=== PATIENT | female | born 1980 | race Caucasian/White ===

== ENCOUNTER 2017-11-24 06:02 | Inpatient (IN) | payer OTHER ==
[2017-11-22 16:19] LABS: BASOPHILS ABSOLUTE AUTO 0.01 K/mm3 (0.00-0.23); BASOPHILS PERCENT AUTO 0 % (0-2); EOSINOPHILS ABSOLUTE AUTO 0.06 K/mm3 (0.00-0.68); EOSINOPHILS PERCENT AUTO 1 % (0-6); Hematocrit 30.2 % (33.0-51.0); IMMATURE GRAN ABSOLUTE AUTO 0.01 K/mm3 (0.00-0.10); IMMATURE GRAN PERCENT AUTO 0 % (0-1); LYMPHOCYTES ABSOLUTE AUTO 2.09 K/mm3 (0.84-5.20); LYMPHOCYTES PERCENT AUTO 28 % (21-46); MONOCYTES PERCENT AUTO 5 % (4-13); Mean Corpuscular HGB 27.5 pg (26.0-34.0); Mean Corpuscular HGB Conc 33.1 g/dL (31.5-36.5); Mean Corpuscular Volume 83 fL (80-100); Mean Platelet Volume 12.6 fL (9.1-12.4); NEUTROPHILS ABSOLUTE AUTO 4.86 K/mm3 (1.96-9.15); NEUTROPHILS PERCENT AUTO 66 % (41-73); Platelet Count 270 K/mm3 (150-400); Red Blood Cell Count 3.63 M/mm3 (3.80-5.20); White Blood Cell Count 7.43 K/mm3 (4.00-11.30)
[~2017-11-24] VITALS: Ht 170.2 cm; Wt 108.0 kg
[~2017-11-24 06:02] MED LIST: AZIT250 PO; BUSP10 PO; GUAI600T33 PO; HUMULIN N100 UNIT/1 SC; HYDACE5 PO; LORA10ER PO; METF500 PO; METF500C PO; NITR100CA PO; NORT10 PO; ONDA4 PO; PROM25 PO; PSEU120ER PO; Prilosec20 MG PO; RANI150 PO; Verotin-Gr Cap1 EACH PO; Zofran Odt8 MG SL
[2017-11-24 08:13] LABS: Alanine Aminotransfer (ALT/SGP 126 U/L (12-78); Albumin, Blood 2.3 g/dL (3.4-5.0); Albumin/Globulin Ratio 0.5 (0.8-1.8); Alk Phos 148 U/L (50-136); Anion Gap 9 mmol/L (6-16); Aspartate Aminotrans (AST/SGOT 80 U/L (12-37); Bilirubin, Total 0.2 mg/dL (0.1-1.0); Blood Urea Nitrogen 13 mg/dL (8-24); Bun/Creatinine Ratio 22.6 (12.0-20.0); CO2, Blood 23 mmol/L (21-32); Calcium, Blood 9.2 mg/dL (8.5-10.1); Chloride, Blood 105 mmol/L (98-108); Creatinine, Blood 0.58 mg/dL (0.40-1.00); Globulin, Blood 4.4 g/dL (2.2-4.0); Glomerular Filtration Rate >60 (60-); Glucose, Blood 102 mg/dL (70-99); Potassium, Blood 3.9 mmol/L (3.5-5.5); Sodium, Blood 137 mmol/L (136-145); Total Protein, Blood 6.7 g/dL (6.4-8.2)
[2017-11-25 06:10] LABS: Hematocrit 30.3 % (33.0-51.0); Mean Corpuscular HGB 27.3 pg (26.0-34.0); Mean Corpuscular Volume 83 fL (80-100); Mean Platelet Volume 12.6 fL (9.1-12.4); Platelet Count 294 K/mm3 (150-400); RDW Coefficient Variation 14.2 % (11.7-14.2); RDW Standard Deviation 42.4 fL (35.1-46.3); Red Blood Cell Count 3.66 M/mm3 (3.80-5.20); White Blood Cell Count 12.95 K/mm3 (4.00-11.30)
[2017-11-25] MEDS ORDERED: Percocet 5-3251 EACH PO (15:04)
[2017-11-25] MEDS ORDERED: IBUP800 PO (15:04)
== END 2017-11-26 13:00 | disposition home or self-care (01) | DRG 765 ==
LOC: BC 06:02
PROVIDERS: Obstetrics & Gynecology
PROC: 10D00Z1 Extraction of Products of Conception, Low, Open Approach (ICD-10-PCS; principal; 2017-11-24 07:30)
DX: O26.62 Liver and biliary tract disorders in childbirth (principal); O24.12 Pre-existing type 2 diabetes mellitus, in childbirth; K83.1 Obstruction of bile duct; O99.354 Diseases of the nervous system complicating childbirth; O34.211 Maternal care for low transverse scar from previous cesarean delivery; M41.9 Scoliosis, unspecified; F32.9 Major depressive disorder, single episode, unspecified; O99.344 Other mental disorders complicating childbirth; E11.9 Type 2 diabetes mellitus without complications; Z3A.37 37 weeks gestation of pregnancy; Z37.0 Single live birth; Z88.1 Allergy status to other antibiotic agents; Z88.0 Allergy status to penicillin; Z79.4 Long term (current) use of insulin; Z79.84 Long term (current) use of oral hypoglycemic drugs; Z79.899 Other long term (current) drug therapy
CPT/HCPCS: 36415; 80053; 82947; 85025; 85027; 86850; 86900; 86901; J0690; J0694; J1885; J2590; J2765; J3010; J3430; J7120

== ENCOUNTER 2017-12-11 15:26 | Emergency (ER) | payer OTHER ==
[~2017-12-11] VITALS: Ht 170.2 cm; Wt 98.0 kg
[~2017-12-11 15:26] MED LIST changes: +IBUP800 PO; +Percocet 5-3251 EACH PO
[2017-12-11] MEDS ORDERED: FLUO10 PO (15:35)
[2017-12-11] MEDS ORDERED: HINGED KNEE SUPPORT TOP (16:14)
== END 2017-12-11 16:20 | disposition home or self-care (01) ==
LOC: ER 15:26
DX: O99.89 Other specified diseases and conditions complicating pregnancy, childbirth and the puerperium (principal); M25.561 Pain in right knee; Z88.0 Allergy status to penicillin; Z88.6 Allergy status to analgesic agent; Z79.891 Long term (current) use of opiate analgesic; Z79.899 Other long term (current) drug therapy
CPT/HCPCS: 73562-RT; 99283

== ENCOUNTER → 2018-07-11 | Outpatient (CLI) | payer OTHER ==
[~2018-07-11] MED LIST changes: +FLUO10 PO; +HINGED KNEE SUPPORT TOP
[2018-07-13 14:11] LABS: HPV 16 Negative (Negative); HPV OTHER HR TYPES Negative (Negative)
[2018-08-02 20:13] LABS: HPV 18 Negative (Negative)
[2018-08-03 10:55] LABS: CHLAMYDIA TRACHOMATIS, NAA Negative (Negative); NEISSERIA GONORRHOEAE, NAA Negative (Negative)
[2018-08-03 10:58] LABS: TRICH VAG BY NAA Negative (Negative)
== END | disposition home or self-care (01) ==
LOC: LAB 12:00 → LAB SHORT 12:00
PROVIDERS: Obstetrics & Gynecology
DX: Z01.419 Encounter for gynecological examination (general) (routine) without abnormal findings (principal); Z11.3 Encounter for screening for infections with a predominantly sexual mode of transmission
CPT/HCPCS: 87491; 87591; 87624; 87661; G0123

== ENCOUNTER → 2018-12-05 | Outpatient (CLI) | payer OTHER ==
[~2018-12-05] MED LIST changes: +CEFP200 PO; +Glucophage1000 MG PO; +MELO7.5 PO; +MONT10T PO; +VITAMIN D50000 UNIT PO
[2018-12-05 14:15] LABS: Candida species (DNA Probe) Negative (NEGATIVE); G. vaginalis (DNA Probe) Negative (NEGATIVE); T. vaginalis (DNA Probe) Positive (NEGATIVE)
[2018-12-07 03:11] LABS: CHLAMYDIA TRACHOMATIS, NAA Negative (Negative); NEISSERIA GONORRHOEAE, NAA Negative (Negative)
== END ==
LOC: LAB 10:26 → LAB SHORT 10:26
PROVIDERS: Obstetrics & Gynecology
DX: N76.0 Acute vaginitis (principal); Z11.3 Encounter for screening for infections with a predominantly sexual mode of transmission
CPT/HCPCS: 87480; 87491; 87510; 87591; 87660

== ENCOUNTER 2019-01-17 00:56 | Emergency (ER) | payer OTHER ==
[~2019-01-17] VITALS: Ht 170.2 cm; Wt 113.4 kg
[~2019-01-17 00:56] MED LIST changes: -CEFP200 PO; -Glucophage1000 MG PO; -MELO7.5 PO; -MONT10T PO; -VITAMIN D50000 UNIT PO
[2019-01-17] MEDS ORDERED: PSEU120ER PO (01:52)
[2019-01-17] MEDS ORDERED: CEFP200 PO (01:52)
[2019-01-17] MEDS ORDERED: MELO7.5 PO (02:05)
[2019-01-17] MEDS ORDERED: Glucophage1000 MG PO (02:06)
[2019-01-17] MEDS ORDERED: VITAMIN D50000 UNIT PO (02:06)
[2019-01-17] MEDS ORDERED: MONT10T PO (02:06)
== END 2019-01-17 02:10 | disposition home or self-care (01) ==
LOC: ER 00:56
DX: H66.91 Otitis media, unspecified, right ear (principal); Z88.0 Allergy status to penicillin; Z88.1 Allergy status to other antibiotic agents; Z88.6 Allergy status to analgesic agent; Z79.84 Long term (current) use of oral hypoglycemic drugs; Z79.899 Other long term (current) drug therapy
CPT/HCPCS: 96372; 99282-25; J1885

== ENCOUNTER 2019-09-20 08:40 | Emergency (ER) | payer OTHER ==
[~2019-09-20] VITALS: Ht 170.2 cm; Wt 113.8 kg
[~2019-09-20 08:40] MED LIST changes: +CEFP200 PO; +CEPH500 PO; +Glucophage1000 MG PO; +MELO7.5 PO; +MONT10T PO; +VITAMIN D50000 UNIT PO
[2019-09-20] MEDS ORDERED: Humulin N100 UNIT/1 SQ (09:57)
[2019-09-20] MEDS ORDERED: FERRO-TIME325 MG PO (09:58)
[2019-09-20] MEDS ORDERED: ERGO50000 PO (09:58)
[2019-09-20] MEDS ORDERED: URSO300 PO (09:58)
[2019-09-20] MEDS ORDERED: Norco 5-325 Ta1 EACH PO ×2 (10:07→10:24)
== END 2019-09-20 10:25 | disposition home or self-care (01) ==
LOC: ER 08:40
DX: O99.89 Other specified diseases and conditions complicating pregnancy, childbirth and the puerperium (principal); M54.5 Low back pain; G89.29 Other chronic pain; O24.913 Unspecified diabetes mellitus in pregnancy, third trimester; Z88.0 Allergy status to penicillin; Z88.1 Allergy status to other antibiotic agents; Z88.8 Allergy status to other drugs, medicaments and biological substances; Z79.899 Other long term (current) drug therapy; Z79.84 Long term (current) use of oral hypoglycemic drugs; Z3A.36 36 weeks gestation of pregnancy
CPT/HCPCS: 99283; A9270-GY

== ENCOUNTER → 2019-10-01 | Outpatient (CLI) | payer OTHER ==
[~2019-10-01] MED LIST changes: +ERGO50000 PO; +FERRO-TIME325 MG PO; +Humulin N100 UNIT/1 SQ; +Norco 5-325 Ta1 EACH PO; +URSO300 PO
== END | disposition home or self-care (01) ==
LOC: LAB SHORT 14:15 → LAB 14:15
DX: Z34.03 Encounter for supervision of normal first pregnancy, third trimester (principal)
CPT/HCPCS: 87081; 87653

== ENCOUNTER 2019-10-08 23:20 | Inpatient (IN) | payer OTHER ==
[~2019-10-08] VITALS: Ht 170.2 cm; Wt 130.5 kg
[2019-10-09 00:09] LABS: Source, Urine Clean Catch
[2019-10-09 00:14] LABS: Bilirubin, Urine Neg (Neg); Blood, Urine Neg (Neg); Glucose Qualitative, Urine Neg (Neg); Ketones, Urine 1+ (Neg); Leukocyte Esterase, Urine 2+ (Neg); Nitrite, Urine Neg (Neg); Protein, Urine 1+ (Neg); Specific Gravity, Urine 1.025 (1.003-1.022); Urobilinogen, Urine 1+ (Normal)
[2019-10-09 00:27] LABS: Appearance, Urine Hazy (Clear); Color, Urine Yellow (P-Yellow)
[2019-10-09 00:28] LABS: Amorphous Light (0-Heavy); Bacteria Many /hpf; Mucus Light (0-Heavy); Red Blood Cells, Urine Not Seen /hpf (0-2); Squamous Epithelial Cells Many /hpf (Few)
[2019-10-09 01:40] LABS: BASOPHILS ABSOLUTE AUTO 0.01 K/mm3 (0.00-0.23); BASOPHILS PERCENT AUTO 0 % (0-2); EOSINOPHILS PERCENT AUTO 1 % (0-6); Hematocrit 32.6 % (33.0-51.0); Hemoglobin 10.6 g/dL (11.5-16.0); IMMATURE GRAN ABSOLUTE AUTO 0.04 K/mm3 (0.00-0.10); IMMATURE GRAN PERCENT AUTO 0 % (0-1); LYMPHOCYTES PERCENT AUTO 21 % (21-46); MONOCYTES ABSOLUTE AUTO 0.72 K/mm3 (0.16-1.47); MONOCYTES PERCENT AUTO 7 % (4-13); Mean Corpuscular HGB 27.9 pg (26.0-34.0); Mean Corpuscular HGB Conc 32.5 g/dL (31.5-36.5); Mean Corpuscular Volume 86 fL (80-100); Mean Platelet Volume 13.3 fL (9.1-12.4); NEUTROPHILS ABSOLUTE AUTO 7.82 K/mm3 (1.96-9.15); NEUTROPHILS PERCENT AUTO 71 % (41-73); Platelet Count 194 K/mm3 (150-400); RDW Coefficient Variation 15.6 % (11.7-14.2); RDW Standard Deviation 48.7 fL (35.1-46.3); White Blood Cell Count 10.99 K/mm3 (4.00-11.30)
[2019-10-09 01:51] LABS: Alanine Aminotransfer (ALT/SGP 129 U/L (12-78); Albumin, Blood 2.3 g/dL (3.4-5.0); Albumin/Globulin Ratio 0.5 (0.8-1.8); Alk Phos 117 U/L (50-136); Anion Gap 7 mmol/L (6-16); Aspartate Aminotrans (AST/SGOT 93 U/L (12-37); Bilirubin, Total 0.4 mg/dL (0.1-1.0); Blood Urea Nitrogen 12 mg/dL (8-24); Bun/Creatinine Ratio 19.4 (12.0-20.0); CO2, Blood 25 mmol/L (21-32); Calcium, Blood 9.4 mg/dL (8.5-10.1); Chloride, Blood 107 mmol/L (98-108); Creatinine, Blood 0.62 mg/dL (0.40-1.00); Globulin, Blood 4.3 g/dL (2.2-4.0); Glomerular Filtration Rate >60 (60-); Glucose, Blood 99 mg/dL (70-99); Sodium, Blood 139 mmol/L (136-145); Total Protein, Blood 6.6 g/dL (6.4-8.2)
[2019-10-09 08:41] LABS: Protein, Urine Random 29.4 mg/dL (0.0-11.9); Protein/Creat Ratio, Ur Random 0.2
--- NOTE | 2019-10-09 12:03 | NUR ---
10/09/19 1203 Taisha Llanos VIABLE MALE BORN AT 1151 WEIGHING 8-0 ([id number] GRAMS) APGARS 7/9. CORD GASES COLLECTED AND SENT WITH RT AMATO. CORD BLOOD COLLECTED.
[2019-10-09 12:09] LABS: PCO2 Cord - Arterial 69.7 mmHg (40-50); PO2 Cord - Arterial 17.5 mmHg (16-20); pH Cord - Arterial 7.24 (7.28-7.35)
[2019-10-09 12:10] LABS: PCO2 Cord - Venous 50 mmHg (40-50); pH Umbilical Cord - Venous 7.34 (7.26-7.35)
[2019-10-10 05:37] LABS: BASOPHILS ABSOLUTE AUTO 0.02 K/mm3 (0.00-0.23); BASOPHILS PERCENT AUTO 0 % (0-2); EOSINOPHILS ABSOLUTE AUTO 0.07 K/mm3 (0.00-0.68); EOSINOPHILS PERCENT AUTO 1 % (0-6); Hematocrit 31.6 % (33.0-51.0); IMMATURE GRAN ABSOLUTE AUTO 0.05 K/mm3 (0.00-0.10); IMMATURE GRAN PERCENT AUTO 0 % (0-1); LYMPHOCYTES ABSOLUTE AUTO 2.03 K/mm3 (0.84-5.20); LYMPHOCYTES PERCENT AUTO 18 % (21-46); MONOCYTES ABSOLUTE AUTO 0.64 K/mm3 (0.16-1.47); MONOCYTES PERCENT AUTO 6 % (4-13); Mean Corpuscular HGB 27.9 pg (26.0-34.0); Mean Corpuscular HGB Conc 31.6 g/dL (31.5-36.5); Mean Corpuscular Volume 88 fL (80-100); Mean Platelet Volume 12.8 fL (9.1-12.4); NEUTROPHILS ABSOLUTE AUTO 8.73 K/mm3 (1.96-9.15); NEUTROPHILS PERCENT AUTO 76 % (41-73); Platelet Count 204 K/mm3 (150-400); RDW Coefficient Variation 15.9 % (11.7-14.2); RDW Standard Deviation 50.7 fL (35.1-46.3); Red Blood Cell Count 3.59 M/mm3 (3.80-5.20); White Blood Cell Count 11.54 K/mm3 (4.00-11.30)
[2019-10-10 06:08] LABS: Alanine Aminotransfer (ALT/SGP 183 U/L (12-78); Albumin/Globulin Ratio 0.5 (0.8-1.8); Alk Phos 122 U/L (50-136); Anion Gap 7 mmol/L (6-16); Aspartate Aminotrans (AST/SGOT 132 U/L (12-37); Bilirubin, Total 0.2 mg/dL (0.1-1.0); Blood Urea Nitrogen 6 mg/dL (8-24); Bun/Creatinine Ratio 9.4 (12.0-20.0); CO2, Blood 26 mmol/L (21-32); Chloride, Blood 103 mmol/L (98-108); Creatinine, Blood 0.64 mg/dL (0.40-1.00); Globulin, Blood 3.9 g/dL (2.2-4.0); Glomerular Filtration Rate >60 (60-); Glucose, Blood 126 mg/dL (70-99); Sodium, Blood 136 mmol/L (136-145); Total Protein, Blood 5.9 g/dL (6.4-8.2)
[2019-10-10 06:14] LABS: Calcium, Blood 7.3 mg/dL (8.5-10.1)
--- NOTE | 2019-10-10 09:15 | NUR ---
MAGNESIUN SULFATE PTS INFUSING COMPLETE AND IV SL'D PT UP TO BR FOR POSS BM UNSUCCESSFUL PT SITTING AND DANGLING AT BEDSIDE PT READY FOR PAIN MEDS THEN AFTER A FEW HOURS WOULD LIKE TO SHOWER WHEN [facility] IS OUT
--- NOTE | 2019-10-10 10:51 | NUR ---
assumed care of pt, hat in toilet, pt would like poole out at 1130 and to get up and shower at that time
--- NOTE | 2019-10-10 13:00 | NUR ---
pt ambulated to [facility]
[2019-10-10] MEDS ORDERED: IBUP800 PO (15:52)
[2019-10-10] MEDS ORDERED: Percocet 5-3251 EACH PO (15:52)
--- NOTE | 2019-10-10 18:57 | NUR ---
pt has snacked all day off and on. wasnt able to do a AC lunch cbg, pt had just had cottage cheese 45 min prior. did a 1 hr postprandial of 129, (pt reports does 1 hour postprandial at home) havent done dinner cbg, pt again has snacked all evening, will call rn when done eating and will do a 1 hr postprandial to get the cbg done.
--- NOTE | 2019-10-11 01:13 | NUR ---
DTR'S 1+
--- NOTE | 2019-10-11 04:58 | NUR ---
DTR'S 1+
--- NOTE | 2019-10-11 07:12 | NUR ---
REPORT TO JEAN PIERRE BOWEN
--- NOTE | 2019-10-11 07:25 | NUR ---
pt sleeping, breakfast at bedside, obt doing AC cbg.
--- NOTE | 2019-10-11 10:20 | NUR ---
pt is ready to discharge home when her ride gets here, she is going to shower, and her mom is on her way, call discharge teaching is done, core referral is done, ppfu phone call is made, pt is aware that if baby discharges home tuesday could make a ppfu appt on tuesday if she is interested.
--- NOTE | 2019-10-11 12:22 | NUR ---
DC HOME WITH FAMILY
== END 2019-10-11 12:22 | disposition home or self-care (01) | DRG 786 ==
LOC: OBS 23:20 → BC 23:20 → OBS 10-09 02:20 → BC 10-09 02:22
PROVIDERS: Registered Nurse Community Health; ADMIT Obstetrics & Gynecology
PROC: 10D00Z1 Extraction of Products of Conception, Low, Open Approach (ICD-10-PCS; principal; 2019-10-09 11:00)
DX: O14.14 Severe pre-eclampsia complicating childbirth (principal); K83.1 Obstruction of bile duct; O24.12 Pre-existing type 2 diabetes mellitus, in childbirth; O26.62 Liver and biliary tract disorders in childbirth; E11.9 Type 2 diabetes mellitus without complications; Z3A.36 36 weeks gestation of pregnancy; Z37.0 Single live birth; Z79.4 Long term (current) use of insulin; O99.214 Obesity complicating childbirth; E66.01 Morbid (severe) obesity due to excess calories; O99.62 Diseases of the digestive system complicating childbirth; K21.9 Gastro-esophageal reflux disease without esophagitis; G47.33 Obstructive sleep apnea (adult) (pediatric)
CPT/HCPCS: 36415; 59025; 80053; 81001; 82570; 82803; 82947; 84156; 85025; 86850; 86900; 86901; 87086; 90707; 99212; C9113; J0690; J1815; J1885; J2405; J2590; J2765; J3010; J3475; J7120

== ENCOUNTER → 2020-07-25 | Outpatient (CLI) | payer OTHER | END | disposition home or self-care (01) | LOC: LAB SHORT 14:01 | DX: N72 Inflammatory disease of cervix uteri (principal) | CPT/HCPCS: 88305; 88342 ==

== ENCOUNTER → 2020-08-20 | Outpatient (CLI) | payer OTHER ==
[2020-08-21 07:47] LABS: Candida species (DNA Probe) Positive (NEGATIVE); G. vaginalis (DNA Probe) Positive (NEGATIVE); T. vaginalis (DNA Probe) Negative (NEGATIVE)
== END | disposition home or self-care (01) ==
LOC: LAB 14:30 → LAB SHORT 14:30
PROVIDERS: Obstetrics & Gynecology
DX: N76.0 Acute vaginitis (principal)
CPT/HCPCS: 87480; 87510; 87660

== ENCOUNTER → 2020-09-04 | Outpatient (CLI) | payer OTHER ==
[2020-09-05 10:25] LABS: Candida species (DNA Probe) Positive (NEGATIVE); G. vaginalis (DNA Probe) Negative (NEGATIVE); T. vaginalis (DNA Probe) Negative (NEGATIVE)
== END | disposition home or self-care (01) ==
LOC: LAB SHORT 19:54 → LAB 19:54
PROVIDERS: Obstetrics & Gynecology
DX: N76.0 Acute vaginitis (principal)
CPT/HCPCS: 87480; 87510; 87660

== ENCOUNTER → 2020-10-01 | Outpatient (CLI) | payer OTHER ==
[2020-10-02 11:05] LABS: Candida species (DNA Probe) Negative (NEGATIVE); G. vaginalis (DNA Probe) Negative (NEGATIVE); T. vaginalis (DNA Probe) Negative (NEGATIVE)
== END ==
LOC: LAB 12:10 → LAB SHORT 12:10
PROVIDERS: Obstetrics & Gynecology
DX: N76.0 Acute vaginitis (principal)
CPT/HCPCS: 87480; 87510; 87660

== ENCOUNTER → 2020-10-16 | Outpatient (CLI) | payer OTHER ==
[2020-10-17 09:46] LABS: Candida species (DNA Probe) Positive (NEGATIVE); G. vaginalis (DNA Probe) Positive (NEGATIVE); T. vaginalis (DNA Probe) Negative (NEGATIVE)
== END | disposition home or self-care (01) ==
LOC: LAB 15:40 → LAB SHORT 15:40
PROVIDERS: Obstetrics & Gynecology
DX: N76.0 Acute vaginitis (principal)
CPT/HCPCS: 87480; 87510; 87660

== ENCOUNTER → 2020-11-13 | Outpatient (CLI) | payer OTHER | END | disposition home or self-care (01) | LOC: LAB SHORT 13:16 → PLD 13:16 | DX: E11.9 Type 2 diabetes mellitus without complications (principal) | CPT/HCPCS: 82043 ==

== ENCOUNTER → 2021-08-17 | Outpatient (CLI) | payer OTHER | END | disposition home or self-care (01) | LOC: LAB SHORT 12:32 → LAB 12:32 | DX: L03.011 Cellulitis of right finger (principal) | CPT/HCPCS: 87070; 87075; 87077; 87147; 87186; 87205 ==

== ENCOUNTER → 2021-09-01 | Outpatient (CLI) | payer OTHER ==
[2021-09-02 10:52] LABS: Candida species (DNA Probe) Positive (NEGATIVE); G. vaginalis (DNA Probe) Positive (NEGATIVE); T. vaginalis (DNA Probe) Negative (NEGATIVE)
== END | disposition home or self-care (01) ==
LOC: LAB SHORT 14:29 → LAB 14:29
PROVIDERS: Obstetrics & Gynecology
DX: N76.0 Acute vaginitis (principal)
CPT/HCPCS: 87480; 87510; 87660

== ENCOUNTER → 2021-09-23 | Outpatient (CLI) | payer OTHER ==
[2021-09-23 14:42] LABS: Candida species (DNA Probe) Positive (NEGATIVE); G. vaginalis (DNA Probe) Negative (NEGATIVE); T. vaginalis (DNA Probe) Negative (NEGATIVE)
== END ==
LOC: LAB 11:47 → LAB SHORT 11:47
PROVIDERS: Obstetrics & Gynecology
DX: N76.0 Acute vaginitis (principal)
CPT/HCPCS: 87480; 87510; 87660

== ENCOUNTER 2022-01-28 17:58 | Emergency (ER) | payer OTHER ==
[~2022-01-28] VITALS: Ht 170.2 cm; Wt 103.0 kg
[2022-01-28 18:58] LABS: BASOPHILS ABSOLUTE AUTO 0.01 K/mm3 (0.00-0.23); BASOPHILS PERCENT AUTO 0 % (0-2); EOSINOPHILS ABSOLUTE AUTO 0.19 K/mm3 (0.00-0.68); EOSINOPHILS PERCENT AUTO 2 % (0-6); Hematocrit 34.1 % (33.0-51.0); Hemoglobin 11.2 g/dL (11.5-16.0); IMMATURE GRAN ABSOLUTE AUTO 0.02 K/mm3 (0.00-0.10); IMMATURE GRAN PERCENT AUTO 0 % (0-1); LYMPHOCYTES ABSOLUTE AUTO 4.27 K/mm3 (0.84-5.20); LYMPHOCYTES PERCENT AUTO 42 % (21-46); MONOCYTES ABSOLUTE AUTO 0.49 K/mm3 (0.16-1.47); MONOCYTES PERCENT AUTO 5 % (4-13); Mean Corpuscular HGB 28.4 pg (26.0-34.0); Mean Corpuscular HGB Conc 32.8 g/dL (31.5-36.5); Mean Corpuscular Volume 86 fL (80-100); Mean Platelet Volume 10.3 fL (9.1-12.4); NEUTROPHILS ABSOLUTE AUTO 5.27 K/mm3 (1.96-9.15); NEUTROPHILS PERCENT AUTO 51 % (41-73); Platelet Count 415 K/mm3 (150-400); RDW Coefficient Variation 13.6 % (11.7-14.2); Red Blood Cell Count 3.95 M/mm3 (3.80-5.20); White Blood Cell Count 10.25 K/mm3 (4.00-11.30)
[2022-01-28 19:26] LABS: Alanine Aminotransfer (ALT/SGP 36 U/L (12-78); Albumin, Blood 3.2 g/dL (3.4-5.0); Albumin/Globulin Ratio 0.7 (0.8-1.8); Alk Phos 71 U/L (50-136); Anion Gap 4 mmol/L (6-16); Aspartate Aminotrans (AST/SGOT 10 U/L (12-37); Bilirubin, Total 0.2 mg/dL (0.1-1.0); Blood Urea Nitrogen 10 mg/dL (8-24); Bun/Creatinine Ratio 25.5 (12.0-20.0); CO2, Blood 27 mmol/L (21-32); Calcium, Blood 9.5 mg/dL (8.5-10.1); Chloride, Blood 104 mmol/L (98-108); Creatinine, Blood 0.39 mg/dL (0.40-1.00); Globulin, Blood 4.3 g/dL (2.2-4.0); Glomerular Filtration Rate >60 (60-); Glucose, Blood 88 mg/dL (70-99); Potassium, Blood 3.9 mmol/L (3.5-5.5); Sodium, Blood 135 mmol/L (136-145); Total Protein, Blood 7.5 g/dL (6.4-8.2)
[2022-01-28 21:15] LABS: Source, Urine Clean Catch
[2022-01-28 21:18] LABS: Appearance, Urine Clear (Clear); Bilirubin, Urine Neg (Neg); Blood, Urine Neg (Neg); Color, Urine Yellow (P-Yellow); Glucose Qualitative, Urine Neg (Neg); Ketones, Urine Neg (Neg); Leukocyte Esterase, Urine Neg (Neg); Nitrite, Urine Neg (Neg); Protein, Urine Neg (Neg); Specific Gravity, Urine 1.015 (1.003-1.022); Urobilinogen, Urine NORM (Normal)
== END 2022-01-28 21:50 | disposition home or self-care (01) ==
LOC: ER 17:58
PROVIDERS: Student in an Organized Health Care Education/Training Program
DX: O99.891 Other specified diseases and conditions complicating pregnancy (principal); R10.9 Unspecified abdominal pain; Z3A.17 17 weeks gestation of pregnancy; Z88.0 Allergy status to penicillin; Z88.6 Allergy status to analgesic agent; Z79.899 Other long term (current) drug therapy; O24.112 Pre-existing type 2 diabetes mellitus, in pregnancy, second trimester
CPT/HCPCS: 36415; 76815; 76817; 80053; 81003; 85025; 86850; 86900; 86901; 99284-25

== ENCOUNTER → 2022-06-09 | Outpatient (CLI) | payer OTHER ==
[~2022-06-09] MED LIST changes: +CYCL10 PO
== END | disposition home or self-care (01) ==
LOC: LAB 10:59 → LAB SHORT 10:59
DX: O09.93 Supervision of high risk pregnancy, unspecified, third trimester (principal)
CPT/HCPCS: 87081; 87150

== ENCOUNTER 2022-06-18 05:02 | Inpatient (IN) | payer OTHER ==
[~2022-06-18] VITALS: Ht 167.6 cm; Wt 111.0 kg
[2022-06-18 06:14] LABS: BASOPHILS ABSOLUTE AUTO 0.02 K/mm3 (0.00-0.23); BASOPHILS PERCENT AUTO 0 % (0-2); EOSINOPHILS ABSOLUTE AUTO 0.14 K/mm3 (0.00-0.68); EOSINOPHILS PERCENT AUTO 1 % (0-6); Hematocrit 31.1 % (33.0-51.0); Hemoglobin 9.9 g/dL (11.5-16.0); IMMATURE GRAN ABSOLUTE AUTO 0.03 K/mm3 (0.00-0.10); IMMATURE GRAN PERCENT AUTO 0 % (0-1); LYMPHOCYTES ABSOLUTE AUTO 3.91 K/mm3 (0.84-5.20); LYMPHOCYTES PERCENT AUTO 40 % (21-46); MONOCYTES ABSOLUTE AUTO 0.66 K/mm3 (0.16-1.47); MONOCYTES PERCENT AUTO 7 % (4-13); Mean Corpuscular HGB 26.8 pg (26.0-34.0); Mean Corpuscular HGB Conc 31.8 g/dL (31.5-36.5); Mean Corpuscular Volume 84 fL (80-100); Mean Platelet Volume 12.5 fL (9.1-12.4); NEUTROPHILS PERCENT AUTO 51 % (41-73); Platelet Count 226 K/mm3 (150-400); RDW Coefficient Variation 13.3 % (11.7-14.2); RDW Standard Deviation 41.1 fL (35.1-46.3); White Blood Cell Count 9.76 K/mm3 (4.00-11.30)
[2022-06-18 06:50] LABS: Albumin, Blood 2.3 g/dL (3.4-5.0); Albumin/Globulin Ratio 0.5 (0.8-1.8); Bilirubin, Total 0.2 mg/dL (0.1-1.0); Bun/Creatinine Ratio 20.8 (12.0-20.0); Calcium, Blood 8.8 mg/dL (8.5-10.1); Creatinine, Blood 0.53 mg/dL (0.40-1.00); Globulin, Blood 4.3 g/dL (2.2-4.0); Total Protein, Blood 6.6 g/dL (6.4-8.2)
--- NOTE | 2022-06-18 08:38 | NUR ---
06/18/22 0838 Brian Ashby REPEAT MALE BORN AT 0802 08/06 WT [id number] PT STATES SHE CONTNUES TO HAVE DESIRE FOR PERMANENT STERILIZATION
--- NOTE | 2022-06-18 11:08 | NUR ---
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
--- NOTE | 2022-06-18 12:30 | NUR ---
WENT IN PT'S ROOM TO CHECK MONITOR FROM BEEPING. BLOOD PRESSURE WAS 70'S/40'S. PT DENIED DIZZINESS OR FEELING FAINT. PT'S ONLY COMPLAINT WAS FEELING "HOT". PT'S BLOOD PRESSURE CAME UP TO 100'S/90'S. WHEN THE NEXT BLOOD PRESSURE DROPPED TO 90'S/60'S I CONTACTED DR. GUILLEN TO REPORT HER BP'S. DR. GUILLEN ORDERED CBC, CBG, AND 1LR BOLUS. PT'S BLEEDING WAS SCANT, FUNDUS FIRM.
[2022-06-18 13:45] LABS: Hematocrit 23.4 % (33.0-51.0); Hemoglobin 7.7 g/dL (11.5-16.0); Mean Corpuscular HGB Conc 32.9 g/dL (31.5-36.5); Mean Corpuscular Volume 82 fL (80-100); Mean Platelet Volume 12.7 fL (9.1-12.4); Platelet Count 309 K/mm3 (150-400); RDW Coefficient Variation 13.4 % (11.7-14.2); RDW Standard Deviation 40.2 fL (35.1-46.3); Red Blood Cell Count 2.85 M/mm3 (3.80-5.20); White Blood Cell Count 19.59 K/mm3 (4.00-11.30)
[2022-06-18 20:03] LABS: Hematocrit 20.7 % (33.0-51.0); Hemoglobin 6.8 g/dL (11.5-16.0); Mean Corpuscular HGB Conc 32.9 g/dL (31.5-36.5); Mean Corpuscular Volume 82 fL (80-100); Mean Platelet Volume 12.6 fL (9.1-12.4); Platelet Count 304 K/mm3 (150-400); RDW Coefficient Variation 13.5 % (11.7-14.2); RDW Standard Deviation 40.7 fL (35.1-46.3); Red Blood Cell Count 2.52 M/mm3 (3.80-5.20); White Blood Cell Count 14.59 K/mm3 (4.00-11.30)
[2022-06-19 02:09] LABS: BASOPHILS ABSOLUTE AUTO 0.02 K/mm3 (0.00-0.23); BASOPHILS PERCENT AUTO 0 % (0-2); EOSINOPHILS ABSOLUTE AUTO 0.04 K/mm3 (0.00-0.68); EOSINOPHILS PERCENT AUTO 0 % (0-6); Hemoglobin 7.5 g/dL (11.5-16.0); IMMATURE GRAN ABSOLUTE AUTO 0.03 K/mm3 (0.00-0.10); IMMATURE GRAN PERCENT AUTO 0 % (0-1); LYMPHOCYTES ABSOLUTE AUTO 3.98 K/mm3 (0.84-5.20); LYMPHOCYTES PERCENT AUTO 34 % (21-46); MONOCYTES ABSOLUTE AUTO 0.65 K/mm3 (0.16-1.47); MONOCYTES PERCENT AUTO 6 % (4-13); Mean Corpuscular HGB 28.3 pg (26.0-34.0); Mean Corpuscular HGB Conc 34.1 g/dL (31.5-36.5); Mean Corpuscular Volume 83 fL (80-100); Mean Platelet Volume 12.5 fL (9.1-12.4); NEUTROPHILS ABSOLUTE AUTO 7.08 K/mm3 (1.96-9.15); NEUTROPHILS PERCENT AUTO 60 % (41-73); Platelet Count 273 K/mm3 (150-400); RDW Standard Deviation 42.4 fL (35.1-46.3); Red Blood Cell Count 2.65 M/mm3 (3.80-5.20)
--- NOTE | 2022-06-19 09:54 | NUR ---
0845 dr alston i to see patient. plan of care discussed. oob with 2 assist to w/c taken to [facility] to see baby
--- NOTE | 2022-06-19 09:55 | NUR ---
0981 sitting up in chair, tolerating well. plan is to shower later
--- NOTE | 2022-06-19 18:08 | NUR ---
UP TO W/C AND TAKEN TO NSY X 2 THIS SHIFT. SINDI STATES SHE DOESNT FEEL STRONG ENOUGH TO ATTEMPT TO WALK THAT FAR BUT WILL TRY TOMORROW
[2022-06-20 06:02] LABS: BASOPHILS ABSOLUTE AUTO 0.01 K/mm3 (0.00-0.23); BASOPHILS PERCENT AUTO 0 % (0-2); EOSINOPHILS ABSOLUTE AUTO 0.24 K/mm3 (0.00-0.68); EOSINOPHILS PERCENT AUTO 2 % (0-6); Hematocrit 19.8 % (33.0-51.0); Hemoglobin 6.5 g/dL (11.5-16.0); IMMATURE GRAN PERCENT AUTO 1 % (0-1); LYMPHOCYTES ABSOLUTE AUTO 2.89 K/mm3 (0.84-5.20); LYMPHOCYTES PERCENT AUTO 27 % (21-46); MONOCYTES ABSOLUTE AUTO 0.69 K/mm3 (0.16-1.47); MONOCYTES PERCENT AUTO 7 % (4-13); Mean Corpuscular HGB Conc 32.8 g/dL (31.5-36.5); Mean Corpuscular Volume 85 fL (80-100); Mean Platelet Volume 11.5 fL (9.1-12.4); NEUTROPHILS ABSOLUTE AUTO 6.69 K/mm3 (1.96-9.15); NEUTROPHILS PERCENT AUTO 63 % (41-73); NRBC ABSOLUTE 0.02 K/mm3 (0.00-0.02); NRBC Auto 0.2 /100 WBC (0.0-0.2); Platelet Count 330 K/mm3 (150-400); RDW Coefficient Variation 14.2 % (11.7-14.2); RDW Standard Deviation 43.1 fL (35.1-46.3); Red Blood Cell Count 2.32 M/mm3 (3.80-5.20); White Blood Cell Count 10.62 K/mm3 (4.00-11.30)
[2022-06-20 12:51] LABS: Hematocrit 22.3 % (33.0-51.0); Hemoglobin 7.5 g/dL (11.5-16.0)
[2022-06-21 05:51] LABS: BASOPHILS ABSOLUTE AUTO 0.01 K/mm3 (0.00-0.23); BASOPHILS PERCENT AUTO 0 % (0-2); EOSINOPHILS PERCENT AUTO 3 % (0-6); Hematocrit 23.6 % (33.0-51.0); Hemoglobin 7.8 g/dL (11.5-16.0); IMMATURE GRAN PERCENT AUTO 1 % (0-1); LYMPHOCYTES ABSOLUTE AUTO 3.55 K/mm3 (0.84-5.20); LYMPHOCYTES PERCENT AUTO 33 % (21-46); MONOCYTES ABSOLUTE AUTO 0.67 K/mm3 (0.16-1.47); MONOCYTES PERCENT AUTO 6 % (4-13); Mean Corpuscular HGB 28.3 pg (26.0-34.0); Mean Corpuscular HGB Conc 33.1 g/dL (31.5-36.5); Mean Corpuscular Volume 86 fL (80-100); Mean Platelet Volume 10.6 fL (9.1-12.4); NEUTROPHILS ABSOLUTE AUTO 6.24 K/mm3 (1.96-9.15); NEUTROPHILS PERCENT AUTO 57 % (41-73); NRBC ABSOLUTE 0.05 K/mm3 (0.00-0.02); NRBC Auto 0.5 /100 WBC (0.0-0.2); Platelet Count 400 K/mm3 (150-400); RDW Coefficient Variation 14.3 % (11.7-14.2); Red Blood Cell Count 2.76 M/mm3 (3.80-5.20); White Blood Cell Count 10.87 K/mm3 (4.00-11.30)
== END 2022-06-21 13:46 | disposition home or self-care (01) | DRG 783 ==
LOC: BC 05:02
PROVIDERS: Family Medicine; ADMIT Obstetrics & Gynecology
PROC: 30233N1 Transfusion of Nonautologous Red Blood Cells into Peripheral Vein, Percutaneous Approach (ICD-10-PCS; 2022-06-18)
PROC: 10D00Z1 Extraction of Products of Conception, Low, Open Approach (ICD-10-PCS; principal; 2022-06-18 07:30)
PROC: 0UT70ZZ Resection of Bilateral Fallopian Tubes, Open Approach (ICD-10-PCS; 2022-06-18 07:30)
DX: O34.211 Maternal care for low transverse scar from previous cesarean delivery (principal); K83.1 Obstruction of bile duct; O24.12 Pre-existing type 2 diabetes mellitus, in childbirth; D62 Acute posthemorrhagic anemia; O26.62 Liver and biliary tract disorders in childbirth; Z3A.37 37 weeks gestation of pregnancy; Z37.0 Single live birth; O99.344 Other mental disorders complicating childbirth; Z30.2 Encounter for sterilization; O99.02 Anemia complicating childbirth; D64.9 Anemia, unspecified; F41.8 Other specified anxiety disorders; O99.214 Obesity complicating childbirth; Z88.0 Allergy status to penicillin; Z88.6 Allergy status to analgesic agent; Z79.899 Other long term (current) drug therapy; Z79.4 Long term (current) use of insulin
CPT/HCPCS: 36415; 36430; 80053; 82947; 85014; 85018; 85025; 85027; 86850; 86900; 86901; 86923; 88302; A9270; J0690; J1815; J1885; J2370; J2405; J2590; J2765; J2916; J3010; J7030; J7120; P9016

== ENCOUNTER → 2022-09-30 | Outpatient (CLI) | payer OTHER ==
[2022-10-01 15:10] LABS: HPV 16 Negative (Negative); HPV 18 Negative (Negative); HPV OTHER HR TYPES Negative (Negative)
== END | disposition home or self-care (01) ==
LOC: LAB 11:45 → LAB SHORT 11:45
PROVIDERS: Obstetrics & Gynecology
DX: Z01.419 Encounter for gynecological examination (general) (routine) without abnormal findings (principal)
CPT/HCPCS: 87624; G0123

== ENCOUNTER 2023-03-19 17:43 | Emergency (ER) | payer OTHER ==
[~2023-03-19] VITALS: Ht 170.2 cm; Wt 116.1 kg
[2023-03-19 18:29] LABS: BASOPHILS ABSOLUTE AUTO 0.02 K/mm3 (0.00-0.23); BASOPHILS PERCENT AUTO 0 % (0-2); EOSINOPHILS ABSOLUTE AUTO 0.23 K/mm3 (0.00-0.68); EOSINOPHILS PERCENT AUTO 2 % (0-6); Hematocrit 38.7 % (33.0-51.0); Hemoglobin 13.4 g/dL (11.5-16.0); IMMATURE GRAN ABSOLUTE AUTO 0.02 K/mm3 (0.00-0.10); IMMATURE GRAN PERCENT AUTO 0 % (0-1); LYMPHOCYTES ABSOLUTE AUTO 3.77 K/mm3 (0.84-5.20); LYMPHOCYTES PERCENT AUTO 40 % (21-46); MONOCYTES ABSOLUTE AUTO 0.73 K/mm3 (0.16-1.47); MONOCYTES PERCENT AUTO 8 % (4-13); Mean Corpuscular HGB 28.5 pg (26.0-34.0); Mean Corpuscular HGB Conc 34.6 g/dL (31.5-36.5); Mean Corpuscular Volume 82 fL (80-100); Mean Platelet Volume 10.2 fL (9.1-12.4); NEUTROPHILS ABSOLUTE AUTO 4.65 K/mm3 (1.96-9.15); NEUTROPHILS PERCENT AUTO 50 % (41-73); Platelet Count 434 K/mm3 (150-400); RDW Coefficient Variation 13.1 % (11.7-14.2); RDW Standard Deviation 39.5 fL (35.1-46.3); White Blood Cell Count 9.42 K/mm3 (4.00-11.30)
[2023-03-19 18:49] LABS: Albumin, Blood 3.9 g/dL (3.4-5.0); Albumin/Globulin Ratio 0.9 (0.8-1.8); Bilirubin, Total 0.6 mg/dL (0.1-1.0); Bun/Creatinine Ratio 34.3 (12.0-20.0); Calcium, Blood 9.5 mg/dL (8.5-10.1); Creatinine, Blood 0.5 mg/dL (0.40-1.00); Globulin, Blood 4.3 g/dL (2.2-4.0); Potassium, Blood 3.5 mmol/L (3.5-5.5); Total Protein, Blood 8.2 g/dL (6.4-8.2)
[2023-03-19 21:00] VITALS: BP 145/103
== END 2023-03-19 21:17 | disposition home or self-care (01) ==
LOC: ER 17:43
PROVIDERS: Physician Assistant
DX: R00.0 Tachycardia, unspecified (principal); E86.0 Dehydration; Z88.0 Allergy status to penicillin; Z88.6 Allergy status to analgesic agent; Z79.899 Other long term (current) drug therapy; E11.9 Type 2 diabetes mellitus without complications
CPT/HCPCS: 36415; 71046; 80053; 84484; 85025; 93005; 93010; 96360; 99285-25; J7030

== ENCOUNTER → 2023-05-06 | Outpatient (CLI) | payer OTHER ==
[2023-05-06 19:29] LABS: BASOPHILS ABSOLUTE AUTO 0.02 K/mm3 (0.00-0.23); BASOPHILS PERCENT AUTO 0 % (0-2); EOSINOPHILS ABSOLUTE AUTO 0.23 K/mm3 (0.00-0.68); EOSINOPHILS PERCENT AUTO 2 % (0-6); Hematocrit 37.6 % (33.0-51.0); Hemoglobin 12.4 g/dL (11.5-16.0); IMMATURE GRAN ABSOLUTE AUTO 0.02 K/mm3 (0.00-0.10); IMMATURE GRAN PERCENT AUTO 0 % (0-1); LYMPHOCYTES ABSOLUTE AUTO 4.77 K/mm3 (0.84-5.20); LYMPHOCYTES PERCENT AUTO 48 % (21-46); MONOCYTES ABSOLUTE AUTO 0.54 K/mm3 (0.16-1.47); MONOCYTES PERCENT AUTO 5 % (4-13); Mean Corpuscular HGB 27.9 pg (26.0-34.0); Mean Corpuscular Volume 85 fL (80-100); Mean Platelet Volume 10.9 fL (9.1-12.4); NEUTROPHILS ABSOLUTE AUTO 4.37 K/mm3 (1.96-9.15); NEUTROPHILS PERCENT AUTO 44 % (41-73); Platelet Count 512 K/mm3 (150-400); RDW Coefficient Variation 13.2 % (11.7-14.2); RDW Standard Deviation 40.7 fL (35.1-46.3); Red Blood Cell Count 4.45 M/mm3 (3.80-5.20); White Blood Cell Count 9.95 K/mm3 (4.00-11.30)
[2023-05-06 19:39] LABS: Alk Phos 81 U/L (50-136); Anion Gap 4 mmol/L (6-16); Aspartate Aminotrans (AST/SGOT 27 U/L (12-37); Bilirubin, Total 0.2 mg/dL (0.1-1.0); Blood Urea Nitrogen 13 mg/dL (8-24); CHOL/HDL RATIO 4.1; CO2, Blood 27 mmol/L (21-32); Calcium, Blood 10.2 mg/dL (8.5-10.1); Chloride, Blood 107 mmol/L (98-108); Cholesterol 203 mg/dL (50-200); Globulin, Blood 4.1 g/dL (2.2-4.0); Glucose, Blood 110 mg/dL (70-99); HDL Cholesterol 50 mg/dL (>39); LDL/HDL RATIO 2.3; Low Density Lipoprotein Chol 117 mg/dL (0-110); Potassium, Blood 3.8 mmol/L (3.5-5.5); Sodium, Blood 138 mmol/L (136-145); Total Protein, Blood 8.1 g/dL (6.4-8.2); Triglycerides 179 mg/dL (30-160); Very Low Density Lipoprot Chol 35 mg/dL (6-32)
[2023-05-06 19:47] LABS: Alanine Aminotransfer (ALT/SGP 61 U/L (12-78); Bun/Creatinine Ratio 27.7 (12.0-20.0); Creatinine, Blood 0.47 mg/dL (0.40-1.00); Glomerular Filtration Rate 123 (60-); Thyroid Stimulating Hormone 0.204 uIU/mL (0.360-4.800)
== END | disposition home or self-care (01) ==
LOC: LAB 17:07 → LAB SHORT 17:07
PROVIDERS: Family Medicine
DX: E11.9 Type 2 diabetes mellitus without complications (principal); R89.1 Abnormal level of hormones in specimens from other organs, systems and tissues; Z79.4 Long term (current) use of insulin
CPT/HCPCS: 80053; 80061; 83036; 84443; 85025

== ENCOUNTER → 2023-11-30 | Outpatient (CLI) | payer OTHER | END | disposition home or self-care (01) | LOC: LAB SHORT 18:50 → LAB 18:50 | DX: Z11.59 Encounter for screening for other viral diseases (principal); E55.9 Vitamin D deficiency, unspecified; R89.1 Abnormal level of hormones in specimens from other organs, systems and tissues | CPT/HCPCS: 82306; 84443; 86592 ==

== ENCOUNTER → 2024-01-20 | Outpatient (CLI) | payer OTHER ==
[2024-01-20 19:37] LABS: Bacterial Vaginosis PCR Negative (NEGATIVE)
[2024-01-20 19:40] LABS: Candida Group, PCR DETECTED (NOT DETECT); Candida glabrata-krusei, PCR DETECTED (NOT DETECT)
== END | disposition home or self-care (01) ==
LOC: LAB SHORT 15:30
PROVIDERS: Family Medicine
DX: B37.31 Acute candidiasis of vulva and vagina (principal)
CPT/HCPCS: 87481; 87661; 87801

== ENCOUNTER 2024-03-27 16:06 | Emergency (ER) | payer OTHER ==
[~2024-03-27] VITALS: Ht 170.2 cm; Wt 93.4 kg
[~2024-03-27 16:06] MED LIST changes: -INSULANPEN SC; -PROPRANOLOL HCL80 MG PO; -ROSUVASTATIN CA40 MG PO; -RYBELSUS14 MG PO; -Vitamin D1000 UNI1 PO
[2024-03-27 16:57] LABS: BASOPHILS ABSOLUTE AUTO 0.03 K/mm3 (0.00-0.23); BASOPHILS PERCENT AUTO 0 % (0-2); EOSINOPHILS ABSOLUTE AUTO 0.08 K/mm3 (0.00-0.68); EOSINOPHILS PERCENT AUTO 1 % (0-6); Hemoglobin 13.4 g/dL (11.5-16.0); IMMATURE GRAN ABSOLUTE AUTO 0.04 K/mm3 (0.00-0.10); IMMATURE GRAN PERCENT AUTO 0 % (0-1); LYMPHOCYTES ABSOLUTE AUTO 4.81 K/mm3 (0.84-5.20); LYMPHOCYTES PERCENT AUTO 34 % (21-46); MONOCYTES ABSOLUTE AUTO 0.77 K/mm3 (0.16-1.47); MONOCYTES PERCENT AUTO 6 % (4-13); Mean Corpuscular HGB 28.2 pg (26.0-34.0); Mean Corpuscular HGB Conc 34.4 g/dL (31.5-36.5); Mean Corpuscular Volume 82 fL (80-100); Mean Platelet Volume 10.8 fL (9.1-12.4); NEUTROPHILS ABSOLUTE AUTO 8.36 K/mm3 (1.96-9.15); NEUTROPHILS PERCENT AUTO 59 % (41-73); Platelet Count 479 K/mm3 (150-400); RDW Coefficient Variation 12.9 % (11.7-14.2); RDW Standard Deviation 38.7 fL (35.1-46.3); Red Blood Cell Count 4.75 M/mm3 (3.80-5.20); White Blood Cell Count 14.09 K/mm3 (4.00-11.30)
[2024-03-27 17:21] LABS: Albumin, Blood 4.3 g/dL (3.4-5.0); Albumin/Globulin Ratio 1.1 (0.8-1.8); Bilirubin, Total 0.7 mg/dL (0.1-1.0); Bun/Creatinine Ratio 22.8 (12.0-20.0); Calcium, Blood 9.5 mg/dL (8.5-10.1); Creatinine, Blood 0.4 mg/dL (0.40-1.00); Globulin, Blood 3.8 g/dL (2.2-4.0); Total Protein, Blood 8.1 g/dL (6.4-8.2)
[2024-03-27 17:30] LABS: Source, Urine Clean Catch
[2024-03-27 17:40] LABS: Appearance, Urine Clear (Clear); Bilirubin, Urine Neg (Neg); Blood, Urine Neg (Neg); Color, Urine Yellow (P-Yellow); Glucose Qualitative, Urine 4+ (Neg); Ketones, Urine 1+ (Neg); Leukocyte Esterase, Urine Neg (Neg); Nitrite, Urine Neg (Neg); Protein, Urine Neg (Neg); Specific Gravity, Urine 1.015 (1.003-1.022); Urobilinogen, Urine NORM (Normal)
[2024-03-27] MEDS ORDERED: METF500 PO (20:30)
[2024-03-27] MEDS ORDERED: ROSUVASTATIN CA40 MG PO (20:31)
[2024-03-27] MEDS ORDERED: Vitamin D1000 UNI1 PO (20:31)
[2024-03-27] MEDS ORDERED: PROPRANOLOL HCL80 MG PO (20:32)
[2024-03-27] MEDS ORDERED: INSULANPEN SC (20:34)
[2024-03-27] MEDS ORDERED: RYBELSUS14 MG PO (20:34)
[2024-03-27 22:30] VITALS: BP 128/93
== END 2024-03-27 23:01 | disposition home or self-care (01) ==
LOC: ER 16:06
PROVIDERS: Physician Assistant
DX: E11.65 Type 2 diabetes mellitus with hyperglycemia (principal); Z59.89 Other problems related to housing and economic circumstances; Z88.0 Allergy status to penicillin; Z88.1 Allergy status to other antibiotic agents; Z88.6 Allergy status to analgesic agent; Z79.4 Long term (current) use of insulin; Z79.84 Long term (current) use of oral hypoglycemic drugs; Z79.899 Other long term (current) drug therapy
CPT/HCPCS: 80053; 81003; 81025; 82010; 82043; 82570; 82947; 83690; 85025; 99283

== ENCOUNTER → 2024-03-27 | Outpatient (CLI) | payer OTHER ==
[~2024-03-27] MED LIST changes: +INSULANPEN SC; +PROPRANOLOL HCL80 MG PO; +ROSUVASTATIN CA40 MG PO; +RYBELSUS14 MG PO; +Vitamin D1000 UNI1 PO
[2024-03-27 19:56] LABS: Microalb/Creat Ratio UR, Rand Unable to Calculate mg/g (0.000-30.000); Microalbumin, Random Urine <5.000 mg/L (0.000-20.000)
== END | disposition home or self-care (01) ==
LOC: LAB SHORT 17:13 → LAB 17:13
PROVIDERS: Family Medicine
DX: E11.65 Type 2 diabetes mellitus with hyperglycemia (principal)
CPT/HCPCS: 82043; 82570

== ENCOUNTER → 2024-03-27 | Outpatient (CLI) | payer OTHER ==
[2024-03-27 15:53] LABS: Albumin/Globulin Ratio 1.1 (0.8-1.8); Bilirubin, Total 0.6 mg/dL (0.1-1.0); Bun/Creatinine Ratio 23.6 (12.0-20.0); Calcium, Blood 9.6 mg/dL (8.5-10.1); Creatinine, Blood 0.47 mg/dL (0.40-1.00); Globulin, Blood 3.6 g/dL (2.2-4.0); Potassium, Blood 4.7 mmol/L (3.5-5.5); Total Protein, Blood 7.6 g/dL (6.4-8.2)
== END ==
LOC: LAB SHORT 10:37 → LAB 10:37
PROVIDERS: Family Medicine
DX: Z09 Encounter for follow-up examination after completed treatment for conditions other than malignant neoplasm (principal); Z87.59 Personal history of other complications of pregnancy, childbirth and the puerperium
CPT/HCPCS: 36415; 80053

== ENCOUNTER → 2025-01-22 | Outpatient (CLI) | payer OTHER ==
[~2025-01-22] MED LIST changes: +INSULANPEN SC; +PROPRANOLOL HCL80 MG PO; +ROSUVASTATIN CA40 MG PO; +RYBELSUS14 MG PO; +Vitamin D1000 UNI1 PO
== END ==
LOC: LAB 15:52 → LAB SHORT 15:52
DX: J35.1 Hypertrophy of tonsils (principal)
CPT/HCPCS: 87081

== ENCOUNTER 2025-04-06 18:50 | Emergency (ER) | payer OTHER ==
[~2025-04-06] VITALS: Ht 167.6 cm; Wt 108.0 kg
[2025-04-06 19:23] VITALS: BP 141/100
[2025-04-06] MEDS ORDERED: RX Prepack 6 Tabs Oxycodone 5mg UD ONE (21:10)
== END 2025-04-06 21:17 | disposition home or self-care (01) ==
LOC: ER 18:50
DX: M25.511 Pain in right shoulder (principal); M25.512 Pain in left shoulder; E11.9 Type 2 diabetes mellitus without complications; Z79.84 Long term (current) use of oral hypoglycemic drugs; Z79.4 Long term (current) use of insulin; Z88.0 Allergy status to penicillin; Z88.6 Allergy status to analgesic agent; Z88.1 Allergy status to other antibiotic agents
CPT/HCPCS: 99282; A9270

== ENCOUNTER → 2025-04-13 | Outpatient (CLI) | payer OTHER ==
[2025-04-13 19:07] LABS: Candida glabrata-krusei, PCR NOT DETECTED (NOT DETECT)
[2025-04-14 00:20] LABS: Bacterial Vaginosis PCR Positive (NEGATIVE); Candida Group, PCR DETECTED (NOT DETECT)
== END ==
LOC: LAB 11:30 → LAB SHORT 11:30
PROVIDERS: Physician Assistant
DX: N89.8 Other specified noninflammatory disorders of vagina (principal)
CPT/HCPCS: 81515